=== PATIENT | female | born 1935 | race Caucasian/White ===

== ENCOUNTER 2020-12-02 15:14 | Inpatient (IN) | payer OTHER ==
[~2020-12-02] VITALS: Ht 160 cm; Wt 74.8 kg
[2020-12-02 17:17] LABS: BASOPHIL % 0.7 % (0.2-1.3); PLATELET COUNT 263 x10^3mcL (179-408); RED CELL DISTRIBUTION WIDTH 17.3 % (12.3-17.7)
[2020-12-02 17:31] LABS: CALCIUM 8.9 mg/dL (8.5-10.1); CARBON DIOXIDE 25.2 mmol/L (21-32); CHLORIDE SERUM 97 mmol/L (98-107); CREATININE SERUM 0.7 mg/dL (0.6-1.0); GLUCOSE SERUM 102 mg/dL (74-106); POTASSIUM SERUM 3.8 mmol/L (3.5-5.1); SODIUM SERUM 132 mmol/L (136-145)
[2020-12-02 17:35] LABS: ALKALINE PHOSPHATASE 63 U/L (46-116); ALT/SGPT 20 U/L (14-59); AST/SGOT 17 U/L (15-37); BILIRUBIN TOTAL 0.3 mg/dL (0.20-1.00); LIPASE 163 IU/L (73-393); TOTAL PROTEIN, SERUM 6.8 g/dL (6.4-8.2)
[2020-12-02 17:38] LABS: ALBUMIN 3.3 g/dL (3.4-5.0)
[2020-12-02 18:12] LABS: microscopic required? YES; urine erythrocyte TRACE (NEGATIVE)
[2020-12-02] MEDS ORDERED: COLACE100 MG PO (19:33)
[2020-12-02] MEDS ORDERED: ADALAT CC30 MG PO (19:33)
[2020-12-02] MEDS ORDERED: PEPCID AC20 M2 PO (19:33)
[2020-12-02] MEDS ORDERED: ADULT LOW DOSE81 MG PO (19:34)
[2020-12-02 19:42] LABS: CHOLESTEROL/HDL RATIO 2.8
[2020-12-02 23:20] VITALS: BP 154/49
[2020-12-02 23:23] VITALS: Ht 160 cm; Wt 74.8 kg
[2020-12-03 07:28] LABS: BASOPHIL % 0.6 % (0.2-1.3); PLATELET COUNT 233 x10^3mcL (179-408)
[2020-12-03 07:32] LABS: CALCIUM 7.8 mg/dL (8.5-10.1); CARBON DIOXIDE 24.6 mmol/L (21-32); CHLORIDE SERUM 104 mmol/L (98-107); CREATININE SERUM 0.8 mg/dL (0.6-1.0); GLUCOSE SERUM 81 mg/dL (74-106); MAGNESIUM 1.8 mg/dL (1.8-2.4); PHOSPHOROUS 3.9 mg/dL (2.5-4.9); POTASSIUM SERUM 4.1 mmol/L (3.5-5.1); SODIUM SERUM 136 mmol/L (136-145)
[2020-12-03 07:42] LABS: RED CELL DISTRIBUTION WIDTH 16.9 % (12.3-17.7)
[2020-12-03 08:12] VITALS: BP 151/49
[2020-12-03 08:52] LABS: IRON 71 ug/dL (50-170); TOTAL IRON BINDING CAPACITY 286 ug/dL (250-450)
[2020-12-03 09:05] LABS: RED BLOOD CELLS 3.57 M/mm3 (4.10-5.10)
[2020-12-03 12:00] VITALS: BP 156/45
[2020-12-03 16:09] VITALS: BP 148/42
[2020-12-03 20:29] VITALS: BP 137/47
[2020-12-04] VITALS (7 sets, daily range): BP systolic 104–156; BP diastolic 31–48
[2020-12-04 06:21] LABS: CALCIUM 8.1 mg/dL (8.5-10.1); CARBON DIOXIDE 23.6 mmol/L (21-32); CHLORIDE SERUM 104 mmol/L (98-107); CREATININE SERUM 0.7 mg/dL (0.6-1.0); GLUCOSE SERUM 87 mg/dL (74-106); MAGNESIUM 1.6 mg/dL (1.8-2.4); PHOSPHOROUS 2.9 mg/dL (2.5-4.9); POTASSIUM SERUM 3.1 mmol/L (3.5-5.1); SODIUM SERUM 137 mmol/L (136-145)
[2020-12-04 07:00] LABS: BASOPHIL % 0.8 % (0.2-1.3); PLATELET COUNT 267 x10^3mcL (179-408)
[2020-12-05 05:00] VITALS: BP 115/39
[2020-12-05 06:31] LABS: CALCIUM 8.4 mg/dL (8.5-10.1); CARBON DIOXIDE 25.1 mmol/L (21-32); CHLORIDE SERUM 108 mmol/L (98-107); CREATININE SERUM 0.6 mg/dL (0.6-1.0); GLUCOSE SERUM 73 mg/dL (74-106); POTASSIUM SERUM 3.8 mmol/L (3.5-5.1); SODIUM SERUM 141 mmol/L (136-145)
[2020-12-05 06:53] LABS: BASOPHIL % 0.7 % (0.2-1.3); PLATELET COUNT 271 x10^3mcL (179-408)
[2020-12-05 07:12] LABS: RED CELL DISTRIBUTION WIDTH 16.9 % (12.3-17.7)
[2020-12-05 08:07] VITALS: BP 130/45
[2020-12-05 11:51] VITALS: BP 123/43
[2020-12-05 17:08] VITALS: BP 138/41
[2020-12-05 21:16] VITALS: BP 134/51
[2020-12-06 05:35] VITALS: BP 122/47
[2020-12-06 06:22] LABS: BASOPHIL % 0.7 % (0.2-1.3); PLATELET COUNT 293 x10^3mcL (179-408)
[2020-12-06 06:23] LABS: CALCIUM 8.1 mg/dL (8.5-10.1); CARBON DIOXIDE 24.3 mmol/L (21-32); CHLORIDE SERUM 104 mmol/L (98-107); CREATININE SERUM 0.8 mg/dL (0.6-1.0); GLUCOSE SERUM 89 mg/dL (74-106); MAGNESIUM 2.1 mg/dL (1.8-2.4); POTASSIUM SERUM 3.5 mmol/L (3.5-5.1); SODIUM SERUM 138 mmol/L (136-145)
[2020-12-06 06:48] LABS: RED CELL DISTRIBUTION WIDTH 17.2 % (12.3-17.7)
[2020-12-06 07:54] VITALS: BP 131/47
[2020-12-06 10:06] VITALS: BP 171/66
[2020-12-06 11:46] VITALS: BP 165/57
[2020-12-06 17:11] VITALS: BP 157/46
[2020-12-06 20:13] VITALS: BP 157/45
[2020-12-07] VITALS (11 sets, daily range): BP systolic 107–131; BP diastolic 32–50
[2020-12-07 05:59] LABS: BASOPHIL % 0.2 % (0.2-1.3); PLATELET COUNT 290 x10^3mcL (179-408)
[2020-12-07 06:00] LABS: CALCIUM 8.5 mg/dL (8.5-10.1); CARBON DIOXIDE 26.9 mmol/L (21-32); CHLORIDE SERUM 101 mmol/L (98-107); CREATININE SERUM 0.8 mg/dL (0.6-1.0); GLUCOSE SERUM 118 mg/dL (74-106); MAGNESIUM 1.6 mg/dL (1.8-2.4); POTASSIUM SERUM 3.5 mmol/L (3.5-5.1); SODIUM SERUM 135 mmol/L (136-145)
[2020-12-07 06:14] LABS: RED CELL DISTRIBUTION WIDTH 17.2 % (12.3-17.7)
[2020-12-08 06:17] VITALS: BP 117/39
[2020-12-08 06:45] LABS: BASOPHIL % 0.1 % (0.2-1.3); PLATELET COUNT 264 x10^3mcL (179-408)
[2020-12-08 07:28] LABS: RED CELL DISTRIBUTION WIDTH 17.2 % (12.3-17.7)
[2020-12-08 07:41] LABS: CALCIUM 8.2 mg/dL (8.5-10.1); CHLORIDE SERUM 98 mmol/L (98-107); CREATININE SERUM 0.9 mg/dL (0.6-1.0); GLUCOSE SERUM 106 mg/dL (74-106); SODIUM SERUM 131 mmol/L (136-145)
[2020-12-08 07:44] LABS: POTASSIUM SERUM 2.9 mmol/L (3.5-5.1)
[2020-12-08 08:10] VITALS: BP 122/43
[2020-12-08 12:16] VITALS: BP 118/45
[2020-12-08 16:10] VITALS: BP 109/52
[2020-12-08 20:40] VITALS: BP 123/44
[2020-12-09 05:08] VITALS: BP 124/50
[2020-12-09 07:46] LABS: CALCIUM 7.8 mg/dL (8.5-10.1); CARBON DIOXIDE 23.1 mmol/L (21-32); CHLORIDE SERUM 100 mmol/L (98-107); CREATININE SERUM 0.9 mg/dL (0.6-1.0); GLUCOSE SERUM 115 mg/dL (74-106); MAGNESIUM 2.3 mg/dL (1.8-2.4); POTASSIUM SERUM 3.1 mmol/L (3.5-5.1); SODIUM SERUM 132 mmol/L (136-145)
[2020-12-09 07:51] LABS: BASOPHIL % 0.2 % (0.2-1.3); PLATELET COUNT 259 x10^3mcL (179-408)
[2020-12-09 07:59] LABS: RED CELL DISTRIBUTION WIDTH 17.5 % (12.3-17.7)
[2020-12-09 08:37] VITALS: BP 114/39
[2020-12-09 12:35] VITALS: BP 107/44
[2020-12-09 17:26] VITALS: BP 113/47
[2020-12-09 21:11] VITALS: BP 130/53
[2020-12-10 06:16] LABS: BASOPHIL % 0.3 % (0.2-1.3); PLATELET COUNT 259 x10^3mcL (179-408)
[2020-12-10 06:22] VITALS: BP 110/47
[2020-12-10 06:40] LABS: RED CELL DISTRIBUTION WIDTH 16.8 % (12.3-17.7)
[2020-12-10 07:00] LABS: CALCIUM 8.1 mg/dL (8.5-10.1); CARBON DIOXIDE 24.4 mmol/L (21-32); CHLORIDE SERUM 100 mmol/L (98-107); CREATININE SERUM 0.8 mg/dL (0.6-1.0); GLUCOSE SERUM 93 mg/dL (74-106); MAGNESIUM 1.9 mg/dL (1.8-2.4); POTASSIUM SERUM 3.4 mmol/L (3.5-5.1); SODIUM SERUM 134 mmol/L (136-145)
[2020-12-10 08:53] VITALS: BP 120/43
[2020-12-10 12:29] VITALS: BP 129/54
[2020-12-10 17:11] VITALS: BP 127/43
[2020-12-10 21:16] VITALS: BP 133/51
[2020-12-11 02:03] LABS: UA SPECIFIC GRAVITY 1.015 (1.005-1.035); microscopic required? YES; urine erythrocyte TRACE (NEGATIVE)
[2020-12-11 05:30] VITALS: BP 123/47
[2020-12-11 07:23] LABS: BASOPHIL % 0.6 % (0.2-1.3); PLATELET COUNT 314 x10^3mcL (179-408)
[2020-12-11 07:27] LABS: RED CELL DISTRIBUTION WIDTH 16.7 % (12.3-17.7)
[2020-12-11 07:37] LABS: CALCIUM 8.9 mg/dL (8.5-10.1); CARBON DIOXIDE 28.3 mmol/L (21-32); CHLORIDE SERUM 101 mmol/L (98-107); CREATININE SERUM 0.7 mg/dL (0.6-1.0); GLUCOSE SERUM 78 mg/dL (74-106); POTASSIUM SERUM 3.8 mmol/L (3.5-5.1); SODIUM SERUM 136 mmol/L (136-145)
[2020-12-11 08:35] VITALS: BP 104/38
[2020-12-11 12:09] VITALS: BP 114/50
[2020-12-11 15:57] VITALS: BP 130/62
[2020-12-11 20:22] VITALS: BP 126/41
[2020-12-12 05:55] VITALS: BP 143/42
[2020-12-12 06:51] LABS: BASOPHIL % 0.7 % (0.2-1.3); PLATELET COUNT 375 x10^3mcL (179-408)
[2020-12-12 07:08] LABS: RED CELL DISTRIBUTION WIDTH 17.1 % (12.3-17.7)
[2020-12-12 07:09] LABS: CALCIUM 9.7 mg/dL (8.5-10.1); CARBON DIOXIDE 29.9 mmol/L (21-32); CHLORIDE SERUM 97 mmol/L (98-107); CREATININE SERUM 0.7 mg/dL (0.6-1.0); GLUCOSE SERUM 102 mg/dL (74-106); POTASSIUM SERUM 4.1 mmol/L (3.5-5.1); SODIUM SERUM 134 mmol/L (136-145)
[2020-12-12 08:39] VITALS: BP 136/45
[2020-12-12] MEDS ORDERED: SIMETHICONE80 MG CH (10:23)
[2020-12-12] MEDS ORDERED: COL100 PO (10:24)
[2020-12-12] MEDS ORDERED: AUG500 PO (10:25)
[2020-12-12] MEDS ORDERED: HYDROCODONE BIT1 T47 PO (10:27)
[2020-12-12 11:55] VITALS: BP 136/45
[2020-12-12 12:00] VITALS: BP 134/43
== END 2020-12-12 14:24 | disposition home or self-care (01) | DRG 227 ==
LOC: ED 15:14 → DU 19:11 → MU 19:11 → DU 23:02 → MU 12-09 15:06
PROVIDERS: Emergency Medicine; Family Medicine; Internal Medicine Gastroenterology; ADMIT Internal Medicine; ATTEND Internal Medicine
PROC: 0DB68ZX Excision of Stomach, Via Natural or Artificial Opening Endoscopic, Diagnostic (ICD-10-PCS; principal; 2020-12-03 13:00)
PROC: 0DJD8ZZ Inspection of Lower Intestinal Tract, Via Natural or Artificial Opening Endoscopic (ICD-10-PCS; 2020-12-04)
PROC: 0WUF0JZ Supplement Abdominal Wall with Synthetic Substitute, Open Approach (ICD-10-PCS; 2020-12-06)
PROC: 0DNW0ZZ Release Peritoneum, Open Approach (ICD-10-PCS; 2020-12-06)
DX: K43.9 Ventral hernia without obstruction or gangrene (principal); D64.9 Anemia, unspecified; E87.1 Hypo-osmolality and hyponatremia; Z20.822 Contact with and (suspected) exposure to COVID-19; I10 Essential (primary) hypertension; Z79.82 Long term (current) use of aspirin; T18.9XXA Foreign body of alimentary tract, part unspecified, initial encounter; X58.XXXA Exposure to other specified factors, initial encounter; Y93.89 Activity, other specified; Y92.89 Other specified places as the place of occurrence of the external cause; Y99.8 Other external cause status; K59.00 Constipation, unspecified; N28.1 Cyst of kidney, acquired; K66.0 Peritoneal adhesions (postprocedural) (postinfection)
CPT/HCPCS: 43235; 45378; 83880; 97110-GP; 97116-GP; 97530-GP; G0378; J0131; J0330; J0690; J1170; J1200; J1610; J1644; J1650; J1885; J2001; J2250; J2270; J2310; J2405; J2543; J2704; J3010; J3475; J3480; J3490; J7030; J7040; U0003